=== PATIENT | female | born 1970 | race Asian ===

== ENCOUNTER 2018-07-10 06:19 | Day surgery (SDC) | payer OTHER ==
[2018-07-10] MEDS ORDERED: CEFAZOLIN 1 GM INJ (09:28)
[2018-07-10] MEDS ORDERED: PROPOFOL 20 ML (09:28)
[2018-07-10] MEDS ORDERED: FENTAnyl 50 MCG/ML VIAL (09:28)
[2018-07-10] MEDS ORDERED: MIDAZOLAM 1 MG/ML 2 ML INJ (09:28)
[2018-07-10] MEDS ORDERED: LABETALOL HCL 20MG INJ IV (09:30)
[2018-07-10] MEDS ORDERED: METOCLOPRAMIDE 10 MG INJ IV (09:30)
[2018-07-10] MEDS ORDERED: HYDROmorphONE 1 MG/5 ML IV SYRINGE IV ×3 (09:30)
[2018-07-10] MEDS ORDERED: ONDANSETRON 4 MG INJ IV (09:30)
[2018-07-10] MEDS ORDERED: DIPHENHYDRAMINE 50 MG INJ IV (09:30)
[2018-07-10] MEDS ORDERED: EPHEDrine SULFATE 50 MG/5 ML SYG IV (09:30)
[2018-07-10] MEDS ORDERED: MEPERIDINE 25 MG INJ IV (09:30)
[2018-07-10] MEDS ORDERED: FENTAnyl 50 MCG/ML VIAL IV ×3 (09:30)
[2018-07-10] MEDS ORDERED: OXYCODONE/ACETAMINOPHEN (5/325) TAB PO (09:30)
[2018-07-10] MEDS ORDERED: ONDANSETRON 4 MG INJ (09:48)
[2018-07-10] MEDS ORDERED: METOCLOPRAMIDE 10 MG INJ (09:48)
[2018-07-10] MEDS ORDERED: DEXAMETHASONE 4 MG/ML 1 ML INJ (09:48)
[2018-07-10] MEDS ORDERED: KETOROLAC 30 MG INJ (09:48)
[2018-07-10] MEDS ORDERED: ACETAMINOPHEN 325 MG TAB PO (10:30)
== END 2018-07-10 11:26 | disposition home or self-care (01) ==
LOC: SDS 06:19
DX: N84.1 Polyp of cervix uteri (principal)
CPT/HCPCS: 58558; 84702; 84703; 86850; 86900; 86901; 88305

== ENCOUNTER 2018-10-11 16:03 | Emergency (ER) | payer OTHER ==
[2018-10-11] MEDS: KETOROLAC 30 MG INJ IM (19:18)
== END 2018-10-11 19:22 | disposition home or self-care (01) ==
LOC: FTE 16:03
DX: M79.602 Pain in left arm (principal)
CPT/HCPCS: 81025; 96372; 99284-25

== ENCOUNTER 2019-05-05 16:50 | Emergency (ER) | payer OTHER ==
[2019-05-05] MEDS: IBUPROFEN 800 MG TAB PO (17:47)
== END 2019-05-05 19:08 | disposition home or self-care (01) ==
LOC: FTE 16:50
DX: M25.571 Pain in right ankle and joints of right foot (principal); M79.641 Pain in right hand; M25.572 Pain in left ankle and joints of left foot
CPT/HCPCS: 73130; 73130-RT; 73610-RT; 99284-25